=== PATIENT | female | born 1995 | race African-American/Black ===

== ENCOUNTER 2018-02-19 19:53 | Inpatient (IN) | payer BC, MEDICAID ==
[2018-02-19] MEDS ORDERED: MYLICON PO PRN (21:23)
[2018-02-19] MEDS ORDERED: COLACE PO PRN (21:23)
[2018-02-19] MEDS ORDERED: TYLENOL PO PRN (21:23)
[2018-02-19] MEDS ORDERED: AMBIEN PO PRN (21:23)
[2018-02-19] MEDS ORDERED: BENADRYL PO PRN (21:23)
--- NOTE | 2018-02-19 21:31 | History and Physical Report ---
History of Present Illness Date of examination: 02/19/18 Date of admission: 02/19/18 21:22 Chief complaint: I can't keep anything down History of present illness: Patient is a 22 year old who presents for inpatient management for hyperemesis. Past History - Obstetrical History : 1 Medications and Allergies Allergies Allergy/AdvReac Type Severity Reaction Status Date / Time Latex, Natural Rubber Allergy Intermediate Rash Verified 06/18/14 15:28 Home Medications Medication Instructions Recorded Confirmed Last Taken Type Vit No.126/Iron/Folic 1 each PO QDAY 06/26/14 06/26/14 06/25/14 08:00 History [Classic Tablet] one Docusate Sodium [Colace] 100 mg PO BID PRN #60 capsule 06/28/14 Unknown Rx Ferrous Sulfate [Feosol 325 MG tab] 325 mg PO BID #60 tablet 06/28/14 Unknown Rx Ibuprofen [Motrin] 800 mg PO Q8H PRN #60 tablet 06/28/14 Unknown Rx oxyCODONE /ACETAMINOPHEN [Percocet 2 tab PO Q6H PRN #50 tablet 06/28/14 Unknown Rx 5/325 mg] Active Meds: Active Medications Acetaminophen (Tylenol) 650 mg PO Q4H PRN PRN Reason: Pain MILD(1-3)/Fever >100.5/HSIEH Results All other labs normal.
[2018-02-19 23:56] LABS: Alanine Aminotransferase 12 units/L (7-56); Albumin 4.5 g/dL (3.9-5); BUN/Creatinine Ratio 15; Blood Urea Nitrogen 6 mg/dL (7-17); Calcium 9.2 mg/dL (8.4-10.2); Hemolysis Index 3
[2018-02-20] MEDS: REGLAN IV PRN ×2 (02:00→15:38)
[2018-02-20] MEDS: D5LR W/KCL 20 MEQ 20 MEQ/1,000 ML BAG IV SCH ×2 (02:15→12:27)
[2018-02-20] MEDS ORDERED: PRENATAL VITAMIN PO SCH (10:00)
[2018-02-20] MEDS: ZOFRAN IV PRN ×3 (10:43→21:13)
[2018-02-20] MEDS: D5LR 1,000 ML IV SCH (18:48)
[2018-02-21] MEDS: REGLAN IV PRN (01:49)
[2018-02-21] MEDS: D5LR 1,000 ML IV SCH (01:50)
[2018-02-21 13:31] VITALS: BP 98/59
--- NOTE | 2018-02-21 17:30 | Progress Note ---
Assessment and Plan HD for admission for hyperemesis. Much improved. Patient to be discharged on today Subjective - Subjective Date of service: 02/21/18 Interval history: Patient is a 22 year old who presents for inpatient management for hyperemesis. Patient has not had any vomiting today after iv hydrtion and potassium replacement Objective - Vital Signs Vital Signs: Vital Signs - 12hr 02/21/18 02/21/18 09:00 13:00 Temperature 98.6 F 98.6 F Pulse Rate 75 76 Respiratory 18 18 Rate Blood Pressure 106/54 98/59 [Left] - Exam Breasts: deferred Cardiovascular: Regular rate, Normal S1, Normal S2 Lungs: Clear to auscultation, Normal air movement - Labs Labs: Abnormal Labs 02/19/18 02/21/18 23:35 06:19 Sodium 136 L Potassium 2.9 L* 3.4 L Chloride 95.5 L BUN 6 L Creatinine 0.4 L Total Bilirubin 1.50 H Total Protein 8.5 H Laboratory Results - last 24 hr 02/21/18 06:19 Potassium 3.4 L
--- NOTE | 2018-02-21 17:32 | Discharge Summary ---
Providers - Providers Date of Admission: 02/19/18 21:22 Date of discharge: 02/21/18 Attending physician: TEOFILO URBANO 02/19/18 Consult to Case Management [CONS] Routine Services Needed at Discharge: Other Notified:: loy duane Phone number called:: [phone] Was contact made?: Yes If yes, spoke with:: Britany Time called:: 11:10 Comment:: will come to see patient 02/19/18 21:23 Consult to Dietitian/Nutrition [CONS] Routine Physician Instructions: Reason For Exam: Reason for Consult: Poor oral intake Primary care physician: TEOFILO URBANO Hospitalization Reason for admission: other (hyperemesis) Discharge diagnosis: other Hospital course: improved Condition at discharge: Good Disposition: DC-01 TO HOME OR SELFCARE Plan - Provider Discharge Summary Activity: routine Diet: routine Instructions: routine Additional instructions: [] Smoking cessation referral if applicable(refer to patient education folder for contact #) [] Refer to [facility]'s [facility] Booklet Call your doctor immediately for: * Fever > 100.5 * Heavy vaginal bleeding ( >1 pad per hour) * Severe persistent headache * Shortness of breath * Reddened, hot, painful area to leg or breast * Drainage or odor from incision. * Keep incision clean and dry at all times and follow doctor's instructions regarding bathing/showering - Follow up plan Follow up: TEOFILO URBANO MD [Primary Care Provider] - (Call Dr. Urbano office for follow up appointment) Forms: [facility] Discharge Summary
== END 2018-02-21 15:30 | disposition home or self-care (01) | DRG 781 ==
LOC: 3A 19:53 → UNDOADMIN 19:53 → OB 21:22
PROVIDERS: ADMIT Obstetrics & Gynecology; ATTEND Obstetrics & Gynecology
DX: O21.0 Mild hyperemesis gravidarum (principal); Z3A.09 9 weeks gestation of pregnancy
CPT/HCPCS: 36415; 80053; 84132; J2405; J2765; J7120; J7121

== ENCOUNTER 2018-09-14 06:02 | Inpatient (IN) | payer BC, MEDICAID ==
[~2018-09-14 06:02] MED LIST: BICITRA PO ONE; PEPCID IV ONE; REGLAN IV ONE
[2018-09-14] MEDS: LACTATED RINGERS 1,000 ML IV SCH ×2 (06:20→07:25)
[2018-09-14 06:41] LABS: Basophils # (Auto) 0.1 K/mm3 (0.0-0.1); Basophils % (Auto) 0.6 % (0.0-1.8); Eosinophils % (Auto) 0.3 % (0.0-4.3); Hemoglobin 10.6 gm/dl (10.1-14.3); Lymphocytes # (Auto) 2.7 K/mm3 (1.2-5.4); Lymphocytes % (Auto) 21.3 % (13.4-35.0); Mean Corpuscular HGB Conc 35 % (30-34); Mean Corpuscular Volume 89 fl (79-97); Monocytes # (Auto) 0.7 K/mm3 (0.0-0.8); Monocytes % (Auto) 5.6 % (0.0-7.3); Platelet Count 315 K/mm3 (140-440); Red Blood Count 3.38 M/mm3 (3.65-5.03); Red Cell Distribution Width 16.8 % (13.2-15.2)
[2018-09-14] MEDS ORDERED: ANCEF/STERILE WATER 2 GM/20 ML 2 GM/20 ML SYRINGE IV NR (07:00)
--- NOTE | 2018-09-14 08:00 | History and Physical Report ---
History of Present Illness Date of examination: 09/14/18 Date of admission: 09/14/18 06:02 Chief complaint: I'm here for my History of present illness: Patient is here for an elective repeat at 39 weeks gestation. 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 Patient has already met with NICU team and has established a plan of care. All labs are negative. GBS is negative Past History Past Medical History: no pertinent history Past Surgical History: section (2016 for placenta previa ) Family/Genetic History: none Social history: single - Obstetrical History Expected Date of Delivery: 09/20/18 Actual Gestation: 39 Week(s) 1 Day(s) : 2 Para: 1 Hx # Term Pregnancies: 0 Number of Pregnancies: 1 Medications and Allergies Allergies Allergy/AdvReac Type Severity Reaction Status Date / Time Latex, Natural Rubber Allergy Intermediate Rash Verified 06/18/14 15:28 Home Medications Medication Instructions Recorded Confirmed Last Taken Type Vit No.126/Iron/Folic 1 each PO QDAY 06/26/14 09/14/18 09/12/18 History [Classic Tablet] Active Meds: Active Medications Lactated Ringer's (Lactated Ringers) 1,000 mls @ 2,250 mls/hr IV PREOP JO ANN Stop: 09/15/18 07:27 Last Admin: 09/14/18 07:25 Dose: 2,250 mls/hr Documented by: Oxytocin/Sodium Chloride (Pitocin/Ns 20 Unit/1000ml Drip) 20 units in 1,000 mls @ 0 mls/hr IV TITR JO ANN Review of Systems All systems: negative - Vital Signs Vital signs: Vital Signs Pulse BP 105 H 107/55 09/14/18 06:47 09/14/18 06:47 Temp Pulse Resp BP Pulse Ox 98.2 F 105 H 20 107/55 99 09/14/18 06:49 09/14/18 06:47 09/14/18 06:49 09/14/18 06:47 09/14/18 06:49 - Physical Exam Breasts: Positive: deferred Cardiovascular: Regular rate, Normal S1, Normal S2 Lungs: Positive: Clear to auscultation, Normal air movement Abdomen: Positive: normal appearance, soft, normal bowel sounds Genitourinary (Female): Positive: normal external genitalia, normal perenium Vulva: both: normal Vagina: Positive: normal moisture Uterus: Positive: enlarged (small for dates) Anus/Rectum: Positive: normal perianal skin Results Result Diagrams: 09/14/18 06:20 Abnormal lab results 09/14/18 Range/Units 06:20 WBC 12.5 H (4.5-11.0) K/mm3 RBC 3.38 L (3.65-5.03) M/mm3 Hct 30.0 L (30.3-42.9) % MCHC 35 H (30-34) % RDW 16.8 H (13.2-15.2) % Seg Neutrophils % 72.2 H (40.0-70.0) % Seg Neutrophils # 9.0 H (1.8-7.7) K/mm3 All other labs normal. Assessment and Plan IUP at 39 weeks with skeletal dysplasia here for elective repeat . Consents signed. Will proceed with surgery. NICU aware.
[2018-09-14] MEDS ORDERED: ZOFRAN ONE (08:14)
[2018-09-14] MEDS ORDERED: SUBLIMAZE ONE (08:14)
[2018-09-14] MEDS ORDERED: ASTRAMORPH PF 10MG/10ML ONE (08:14)
--- NOTE | 2018-09-14 08:27 | Anesthesia Consultation ---
Anesthesia Consult and Med Hx Date of service: 09/14/18 - Airway Anesthetic Teeth Evaluation: Good ROM Head & Neck: Adequate Mental/Hyoid Distance: Adequate Mallampati Class: Class I Intubation Access Assessment: Good - Pulmonary Exam CTA: Yes - Cardiac Exam Cardiac Exam: RRR - Pre-Operative Health Status ASA Pre-Surgery Classification: ASA2 Proposed Anesthetic Plan: Spinal - Pulmonary Hx Smoking: No Hx Asthma: No Hx Respiratory Symptoms: No COPD: No Hx Pneumonia: No - Cardiovascular System Hx Hypertension: No Hx Coronary Artery Disease: No Hx Heart Attack/AMI: No Hx Angina: No Hx Cardia Arrhythmia: No Hx Pacemaker: No Hx Internal Defibrillator: No - Central Nervous System Hx Neuromuscular Disorder: No Hx Seizures: No CVA: No Hx Psychiatric Problems: No - Endocrine Hx Renal Disease: No Hx End Stage Renal Disease: No Hx Cirrhosis: No Hx Liver Disease: No Hx Insulin Dependent Diabetes: No Hx Non-Insulin Dependent Diabetes: No Hx Thyroid Disease: No Hx Hypothyroidism: No Hx Hyperthyroidism: No - Hematic Hx Anemia: No Hx Sickle Cell Disease: No - Other Systems Hx Alcohol Use: No Hx Substance Use: No Hx Cancer: No Hx Obesity: No
[2018-09-14] MEDS ORDERED: ANCEF/STERILE WATER 2 GM/20 ML IV ONE (08:33)
[2018-09-14] MEDS: PITOCin/NS 20 UNIT/1000ML DRIP 20 UNITS/1,000 ML BAG IV SCH ×2 (09:27→10:59)
[2018-09-14] MEDS ORDERED: DEMEROL IV PRN (10:16)
[2018-09-14] MEDS ORDERED: PHENERGAN PR PRN (10:30)
[2018-09-14] MEDS ORDERED: SODIUM CHLORIDE FLUSH SYRINGE 10 ML IV PRN (10:30)
[2018-09-14] MEDS ORDERED: PHENERGAN PO PRN (10:30)
[2018-09-14] MEDS ORDERED: NARCAN 0.4 MG/1 ML IV PRN ×2 (10:30→12:17)
[2018-09-14] MEDS ORDERED: fentaNYL-BUPIV 2 MCG/ML-0.125% 200 MCG/100 ML BAG EPIDURAL SCH (10:30)
[2018-09-14] MEDS ORDERED: DILAUDID IV PRN (10:30)
[2018-09-14] MEDS ORDERED: ZOFRAN IV PRN ×2 (10:30→12:17)
[2018-09-14] MEDS ORDERED: BENADRYL IV ONE ×2 (11:00→11:30)
--- NOTE | 2018-09-14 11:05 | Procedure Note ---
OB Delivery Note - Delivery Date of Delivery: 09/14/18 Surgeon: TEOFILO URBANO Estimated blood loss: other (600) - Section Preop diagnosis: repeat , other (skeletal dysplasia) Postop diagnosis: same section procedure: repeat low transverse Disposition: PACU Complications: none Narrative: see op report - A at 1 minute: 8 at 5 minutes: 9 Infant Gender: Female (2880g, 4 '9")
--- NOTE | 2018-09-14 11:10 | Operative Report ---
Operative Report Operative Report: The operative report for patient Sivan Bhatt Date of service: 09/14/2018 Preoperative diagnosis: Intrauterine at 39-4/7 weeks 2. Previous x 1 3. Skeletal dysplasia of the fetus 4. Severe IUGR Postoperative diagnosis: Same Procedure: Repeat low transverse section Surgeon: Dr. Ryann Sargent EBL: 600 mL Urine output: 75 mL IV fluids: 1000 mL Findings: Viable female in the vertex occiput anterior position. Weight 4 lbs. 9 oz. 3576 g Apgars 8 and 9]. Otherwise normal pelvic anatomy Specimens: Placenta Complications: None Procedure: The patient was admitted to the OR with IV running and in place. She was properly identified as herself. She was given spinal anesthesia in the a while without difficulty. She was placed in the dorsal supine position with a leftward tilt. A Elizabeth catheter was inserted. She was then prepped and draped in the normal sterile fashion. An Allis test was used to confirm adequate anesthesia. Once confirmed, the incision was made with the scalpel and carried to the underlying fascia using the scalpel and the Bovie. The fascia was incised in the midline and incision was extended bilaterally using the curved Beard scissors. The fascia was then dissected from the underlying rectus muscles in a series of sharp and blunt dissection using the Beard scissors. Muscles were in the in the midline sharply using Metzenbaum scissors and the peritoneum was entered into bluntly using the surgeon's fingers. A bladder blade was then placed into the incision to protect the bladder. Following this the bladder flap was created. Hysterotomy incision was then made in the scalpel. Upon uterine entry, the amniotic sac was ruptured for clear fluid. The was then delivered in the occiput anterior position. Her mouth and nose were suctioned on the field. The cord was clamped and cut and she was handed to the waiting NICU personnel. 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 The head of the infant was markedly softer than normal. The placenta was delivered manually and taken off the field. The uterus was then exteriorized and cleared of all clots and debris. The hysterotomy incision was then closed in a running locked fashion using 0 Vicryl. The abdomen was then copiously irrigated with warm normal saline. Following this the uterus was replaced into the abdominal cavity. At this point the muscles were reapproximated in the midline using individual sutures of 0 Vicryl. Following this the fascia was closed in a running fashion using 0 Vicryl. Tissue was then copiously irrigated. A retention suture was placed in the subcuticular fat. Skin was closed in a running fashion using 3-0 Monocryl. The sponge lap needle and instrument counts were correct 2. The patient tolerated the procedure well. She was taken to recovery in stable condition.
[2018-09-14] MEDS ORDERED: TYLENOL PO PRN (12:17)
[2018-09-14] MEDS ORDERED: MORPHINE IV PRN (12:17)
[2018-09-14] MEDS ORDERED: MYLICON PO PRN (12:17)
[2018-09-14] MEDS ORDERED: MILK OF MAGNESIA PO PRN (12:17)
[2018-09-14] MEDS ORDERED: SODIUM CHLORIDE FLUSH SYRINGE 10 ML IV NR (12:17)
[2018-09-14] MEDS ORDERED: D5LR 1,000 ML IV SCH (12:17)
[2018-09-14] MEDS ORDERED: TUCKS PAD TP PRN (12:17)
[2018-09-14] MEDS ORDERED: PITOCin/NS 20 UNIT/1000ML DRIP 20 UNITS/1,000 ML BAG IV SCH (12:17)
[2018-09-14] MEDS ORDERED: LANSINOH TP PRN (12:17)
[2018-09-14] MEDS: IBUPROFEN PO PRN (16:22)
[2018-09-14] MEDS: PERCOCET 5/325 PO PRN (16:22)
[2018-09-14] MEDS: TORADOL IV PRN (16:51)
[2018-09-14] MEDS: BENADRYL IV PRN (21:40)
[2018-09-14 23:10] LABS: Hematocrit 26.2 % (30.3-42.9); Hemoglobin 8.8 gm/dl (10.1-14.3)
[2018-09-15] MEDS: BENADRYL IV PRN (03:56)
[2018-09-15] MEDS: TORADOL IV PRN (03:56)
[2018-09-15] MEDS: IBUPROFEN PO PRN ×2 (10:42→17:57)
[2018-09-15] MEDS: PERCOCET 5/325 PO PRN ×3 (10:42→22:08)
[2018-09-16] MEDS: PERCOCET 5/325 PO PRN ×4 (06:27→21:34)
--- NOTE | 2018-09-16 10:25 | Progress Note ---
Assessment and Plan POD 2 s/p Rltcs. Patient doing well physically. Patient continues to be quite emotional regarding status of baby. Plan for discharge on tomorrow. Subjective - Subjective Date of service: 09/16/18 Interval history: Patient is here for an elective repeat at 39 weeks gestation. 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 Patient has already met with NICU team and has established a plan of care. All labs are negative. GBS is negative Patient reports: appetite normal, voiding normally, pain well controlled, flatus, ambulating normally [place]: in NICU Objective - Vital Signs Latest vital signs: Vital Signs Temp Pulse Resp BP BP Pulse Ox 09/16/18 08:10 98.6 F 76 16 117/60 09/16/18 06:27 22 09/16/18 04:00 98.6 F 77 18 114/67 09/15/18 23:30 98.7 F 77 18 108/64 09/15/18 23:08 20 09/15/18 22:08 18 09/15/18 19:30 98.6 F 81 18 104/57 09/15/18 18:58 18 09/15/18 18:57 16 09/15/18 17:58 20 09/15/18 17:57 20 09/15/18 15:58 98.2 F 83 20 102/47 97 09/15/18 12:02 98.1 F 119 H 16 112/73 95 09/15/18 10:42 20 Intake and Output 09/15/18 09/16/18 09/16/18 22:59 06:59 14:59 Intake Total 540 250 Balance 540 250 Intake: Oral 240 250 Intake, Free Water 300 Other: Total, Intake Amount 250 # Voids Indwelling Catheter 1 - Exam Breasts: Present: deferred Cardiovascular: Present: Regular rate, Normal S1, Normal S2 Lungs: Present: Clear to auscultation, Normal air movement Abdomen: Present: normal appearance, soft Extremities: Present: normal Incision: Present: normal, dry, intact
--- NOTE | 2018-09-16 10:27 | Discharge Summary ---
Providers - Providers Date of Admission: 09/14/18 06:02 Date of discharge: 09/16/18 Attending physician: TEOFILO URBANO Primary care physician: TEOFILO URBANO Hospitalization Reason for admission: section Delivery: Procedure: repeat low transverse Procedure details: see op report Episiotomy: none Laceration: none Incision: normal, dry, intact Other procedures: none complications: none Discharge diagnosis: IUP at term delivered [place] baby: female Hospital course: good Condition at discharge: Good Disposition: DC-01 TO HOME OR SELFCARE Plan - Discharge Medications Prescriptions: Docusate Sodium [Colace] 100 mg PO BID PRN #60 capsule PRN Reason: Constipation Ibuprofen [Motrin] 800 mg PO Q8HR PRN #40 tablet PRN Reason: Pain, Mild (1-3) Oxycodone HCl/Acetaminophen [Percocet 7.5/325 mg] 1 each PO Q6HR PRN #40 tablet PRN Reason: Pain - Provider Discharge Summary Activity: routine, no sex for 6 weeks, no heavy lifting 4 weeks, no strenuous exercise Diet: routine Instructions: routine Additional instructions: [] Smoking cessation referral if applicable(refer to patient education folder for contact #) [] Refer to [facility] Booklet Call your doctor immediately for: * Fever > 100.5 * Heavy vaginal bleeding ( >1 pad per hour) * Severe persistent headache * Shortness of breath * Reddened, hot, painful area to leg or breast * Drainage or odor from incision. * Keep incision clean and dry at all times and follow doctor's instructions regarding bathing/showering - Follow up plan Follow up: TEOFILO URBANO MD [Primary Care Provider] - 14 Days
[2018-09-16] MEDS: PRENATAL VITAMIN PO SCH (11:06)
[2018-09-16] MEDS: IBUPROFEN PO PRN ×2 (11:06→16:23)
[2018-09-16] MEDS: FEOSOL PO SCH (11:06)
[2018-09-17] MEDS: IBUPROFEN PO PRN ×3 (02:34→16:20)
[2018-09-17] MEDS: PERCOCET 5/325 PO PRN ×3 (05:22→16:00)
[2018-09-17] MEDS: PRENATAL VITAMIN PO SCH (10:38)
[2018-09-17] MEDS: FEOSOL PO SCH (10:38)
[2018-09-17 17:12] VITALS: BP 107/62
== END 2018-09-17 21:15 | disposition home or self-care (01) | DRG 765 ==
LOC: APU 06:02 → OB 12:16
PROVIDERS: ADMIT Obstetrics & Gynecology; ATTEND Obstetrics & Gynecology
PROC: 10D00Z1 Extraction of Products of Conception, Low, Open Approach (ICD-10-PCS; principal; 2018-09-14)
DX: O34.211 Maternal care for low transverse scar from previous cesarean delivery (principal); O36.5930 Maternal care for other known or suspected poor fetal growth, third trimester, not applicable or unspecified; Z37.0 Single live birth; Z3A.39 39 weeks gestation of pregnancy; Z91.040 Latex allergy status; Z91.048 Other nonmedicinal substance allergy status; O35.8XX0 Maternal care for other (suspected) fetal abnormality and damage, not applicable or unspecified
CPT/HCPCS: 36415; 85014; 85018; 85025; 86850; 86900; 86901; 88307; G0378; J0690; J1170; J1200; J1885; J2175; J2274; J2405; J2590; J2765; J3010; J7120; J7121

== ENCOUNTER 2019-08-17 05:18 | Inpatient (IN) | payer MEDICAID ==
[2019-08-17] MEDS ORDERED: FAMOTIDINE 20 MG/2 ML INJ IV ONE ×2 (05:50→08:25)
[2019-08-17] MEDS ORDERED: METOCLOPRAMIDE 10 MG/2 ML INJ IV ONE (05:50)
[2019-08-17] MEDS ORDERED: BICITRA ORAL LIQD 30ML PO ONE (05:50)
[2019-08-17] MEDS ORDERED: ceFAZolin/Water 2 GM/20 ML 2 GM/20 ML SYRINGE IV NR (06:00)
[2019-08-17] MEDS ORDERED: OXYTOCIN 20 UNIT/1000ML DRIP 20 UNITS/1,000 ML BAG IV SCH ×2 (06:00→12:52)
[2019-08-17] MEDS: LACTATED RINGERS 1,000 ML IV SCH ×2 (06:10→07:29)
[2019-08-17 06:30] LABS: Basophils # (Auto) 0.1 K/mm3 (0.0-0.1); Basophils % (Auto) 0.6 % (0.0-1.8); Eosinophils # (Auto) 0.1 K/mm3 (0.0-0.4); Eosinophils % (Auto) 0.6 % (0.0-4.3); Hematocrit 31.4 % (30.3-42.9); Hemoglobin 10.8 gm/dl (10.1-14.3); Lymphocytes # (Auto) 2.3 K/mm3 (1.2-5.4); Lymphocytes % (Auto) 17.7 % (13.4-35.0); Mean Corpuscular HGB Conc 34 % (30-34); Mean Corpuscular Volume 86 fl (79-97); Monocytes # (Auto) 0.8 K/mm3 (0.0-0.8); Monocytes % (Auto) 5.8 % (0.0-7.3); Platelet Count 328 K/mm3 (140-440); Red Blood Count 3.67 M/mm3 (3.65-5.03); Red Cell Distribution Width 17.1 % (13.2-15.2)
[2019-08-17] MEDS ORDERED: ceFAZolin/Water 2 GM/20 ML 2 GM/20 ML SYRINGE IV ONE (08:25)
[2019-08-17] MEDS ORDERED: METOCLOPRAMIDE 10 MG/2 ML INJ ONE (08:25)
[2019-08-17] MEDS ORDERED: BICITRA ORAL LIQD 30ML ONE (08:25)
[2019-08-17] MEDS ORDERED: DEXMEDETOMIDINE 200 MCG/2 ML VIAL IV ONE (09:06)
[2019-08-17] MEDS ORDERED: WATER FOR IRRIG STERILE 1,500 ML BOTTLE IR ONE (09:07)
[2019-08-17] MEDS ORDERED: HYDROmorphone 1 MG/1 ML INJ IV PRN ×2 (09:07)
[2019-08-17] MEDS ORDERED: SODIUM CHLORIDE 0.9% IRR 1,500 ML BOTTLE IR ONE (09:07)
[2019-08-17] MEDS ORDERED: ONDANSETRON 4 MG/2 ML INJ IV PRN ×2 (09:07→12:52)
--- NOTE | 2019-08-17 09:08 | Anesthesia Consultation ---
Anesthesia Consult and Med Hx Date of service: 08/17/19 - Airway Anesthetic Teeth Evaluation: Good ROM Head & Neck: Adequate Mental/Hyoid Distance: Adequate Mallampati Class: Class II Intubation Access Assessment: Probably Good - Pulmonary Exam CTA: Yes - Cardiac Exam Cardiac Exam: RRR - Pre-Operative Health Status ASA Pre-Surgery Classification: ASA2 Proposed Anesthetic Plan: Epidural - Pulmonary Hx Smoking: No Hx Asthma: No Hx Respiratory Symptoms: No SOB: No COPD: No Home Oxygen Therapy: No Hx Pneumonia: No Hx Sleep Apnea: No - Cardiovascular System Hx Hypertension: No Hx Coronary Artery Disease: No Hx Heart Attack/AMI: No Hx Angina: No Hx Percutaneous Transluminal Coronary Angioplasty (PTCA): No Hx Cardia Arrhythmia: No Hx Pacemaker: No Hx Internal Defibrillator: No Hx Valvular Heart Disease: No Hx Heart Murmur: No Hx Peripheral Vascular Disease: No - Central Nervous System Hx Neuromuscular Disorder: No Hx Seizures: No CVA: No Hx Psychiatric Problems: Yes ( depression) - Endocrine Hx Renal Disease: No Hx End Stage Renal Disease: No Hx Cirrhosis: No Hx Liver Disease: No Hx Insulin Dependent Diabetes: No Hx Non-Insulin Dependent Diabetes: No Hx Thyroid Disease: No Hx Hypothyroidism: No Hx Hyperthyroidism: No - Hematic Hx Anemia: Yes Hx Sickle Cell Disease: No - Other Systems Hx Alcohol Use: No Hx Substance Use: No Hx Cancer: No Hx Obesity: No
--- NOTE | 2019-08-17 09:09 | Anesthesia Day of Surgery ---
Anesthesia Day of Surgery - Day of Surgery Patient Examined: Yes Patient H&P Reviewed: Yes Patient is NPO: Yes Beta Blockers: No Cardiac Clearance: No Pulmonary Clearance: No Noble's Test: N/A
--- NOTE | 2019-08-17 09:13 | History and Physical Report ---
History of Present Illness Date of examination: 08/17/19 Date of admission: 08/17/19 05:18 Chief complaint: I'm here for my History of present illness: Patient is a 24 year old who presents to L&D for elective repeat at 39 weeks with an EDC of 08/24/2019. Pt has a history of previous complicated by placenta previa and delivery at 31 weeiks. Her second was delivered and had Type 2 OI. This has been complicated by diagnosis of Klinefelters syndrome. Her labs have been otherwise normal. Past History Past Medical History: no pertinent history Past Surgical History: section (x2) Family/Genetic History: none Social history: single - Obstetrical History Expected Date of Delivery: 08/23/19 Actual Gestation: 39 Week(s) 1 Day(s) : 3 Medications and Allergies Allergies Allergy/AdvReac Type Severity Reaction Status Date / Time Latex, Natural Rubber Allergy Intermediate Rash Verified 06/18/14 15:28 Home Medications Medication Instructions Recorded Confirmed Last Taken Type Vit No.126/Iron/Folic 1 each PO QDAY 06/26/14 09/14/18 09/12/18 History [Classic Tablet] one Docusate Sodium [Colace] 100 mg PO BID PRN #60 capsule 09/14/18 Unknown Rx Ibuprofen [Motrin] 800 mg PO Q8HR PRN #40 tablet 09/14/18 Unknown Rx Oxycodone HCl/Acetaminophen 1 each PO Q6HR PRN #40 tablet 09/14/18 Unknown Rx [Percocet 7.5/325 mg] Active Meds: Active Medications Hydromorphone HCl (Dilaudid) 0.5 mg IV Q5M PRN PRN Reason: BREAK Hydromorphone HCl (Dilaudid) 0.5 mg IV Q4H PRN PRN Reason: breakthrough pain > 7/10 Oxytocin/Sodium Chloride (Pitocin/Ns 20 Unit/1000ml Drip) 20 units in 1,000 mls @ 0 mls/hr IV TITR JO ANN Lactated Ringer's (Lactated Ringers) 1,000 mls @ 2,250 mls/hr IV PREOP JO ANN Stop: 08/18/19 06:27 Last Admin: 08/17/19 07:29 Dose: 2,250 mls/hr Documented by: Ondansetron HCl (Zofran) 4 mg IV Q8H PRN PRN Reason: Nausea And Vomiting Sodium Chloride (Sodium Chloride Flush Syringe 10 Ml) 10 ml IV PRN NR Review of Systems All systems: negative Genitourinary: leakage of fluid, contractions - Vital Signs Vital signs: Vital Signs Temp Pulse Resp BP 98.1 F 113 H 18 114/68 08/17/19 06:34 08/17/19 06:34 08/17/19 06:34 08/17/19 06:34 Temp Pulse Resp BP Pulse Ox 98.1 F 113 H 18 114/68 08/17/19 06:34 08/17/19 06:34 08/17/19 06:34 08/17/19 06:34 - Physical Exam Breasts: Cardiovascular: Regular rate, Normal S1, Normal S2 Lungs: Positive: Clear to auscultation, Normal air movement Abdomen: Positive: normal appearance, soft, normal bowel sounds. Negative: distention, tenderness Vulva: both: normal Vagina: Positive: normal moisture. Negative: discharge Cervix: Negative: lesion, discharge Uterus: Positive: normal size, normal contour Adnexa: both: normal Anus/Rectum: Positive: normal perianal skin, heme negative. Negative: rectal mass, hemorrhoids Extremities: Deep Tendon Reflex Grade: Normal +2 Results Result Diagrams: 08/17/19 06:10 Abnormal lab results 08/17/19 Range/Units 06:10 WBC 13.1 H (4.5-11.0) K/mm3 RDW 17.1 H (13.2-15.2) % Seg Neutrophils % 75.3 H (40.0-70.0) % Seg Neutrophils # 9.9 H (1.8-7.7) K/mm3 All other labs normal. Assessment and Plan IUP at 39.1 weeks for elective repeat . Admit for surgery. consents signed.
[2019-08-17] MEDS ORDERED: ONDANSETRON 4 MG/2 ML INJ ONE (09:57)
[2019-08-17] MEDS ORDERED: KETOROLAC 30 MG/1 ML INJ ONE (09:57)
--- NOTE | 2019-08-17 10:38 | Post Anesthesia Evaluation ---
- Post Anesthesia Evaluation Patient Participated: Yes Airway Patent: Yes Stable Respiratory Function: Yes Nausea/Vomiting: No Temp > 96.8F: Yes Pain Manageable: Yes Adequeate Hydration: Yes Anesthesia Complications: No Block Receding Appropriately: Yes Patient on Ventilator: No
--- NOTE | 2019-08-17 10:42 | Procedure Note ---
OB Delivery Note - Delivery Date of Delivery: 08/17/19 Surgeon: TEOFILO URBANO Estimated blood loss: other (700) - Section Preop diagnosis: repeat , other malpresentation section procedure: repeat low transverse Disposition: PACU Complications: none Narrative: see op report - Infant A at 1 minute: 8 at 5 minutes: 9 Infant Gender: Male (5 pounds 10 ounces)
--- NOTE | 2019-08-17 10:49 | Operative Report ---
Operative Report Operative Report: he operative report for patient Sivan Bhatt Date of service: 08/17/19 Preoperative diagnosis: Intrauterine at 39 weeks 2. Previous x2 Postoperative diagnosis: Same Procedure: Repeat low transverse section Surgeon: Dr. Ryann Sargent EBL: 700 Urine output: 100 mL IV fluids: 1100 mL Findings: Viable male in the vertex position. Weight 5 lbs. 10 oz. 2566 g Apgars 8 and 9]. Otherwise normal pelvic anatomy Specimens: None Complications: None Procedure: The patient was admitted to the OR with IV running and in place. She was properly identified as herself. She was given spinal anesthesia in the OR without difficulty. She was placed in the dorsal supine position with a leftward tilt. A Elizabeth catheter was inserted. She was then prepped and draped in the normal sterile fashion. An Allis test was used to confirm adequate anes thesia. Once confirmed, the incision was made with the scalpel and carried to the underlying fascia using the scalpel and the Bovie. The fascia was incised in the midline and incision was extended bilaterally using the curved Beard scissors. The fascia was then dissected from the underlying rectus muscles in a series of sharp and blunt dissection using the Beard scissors. Muscles were in the in the midline sharply using Metzenbaum scissors and the peritoneum was entered into bluntly using the surgeon's fingers. A bladder blade was then placed into the incision to protect the bladder. Following this the bladder flap was created. Hysterotomy incision was then made in the scalpel. Upon uterine entry, the amniotic sac was ruptured for clear fluid. The infant was then delivered in the vetex presentation. His mouth and nose were suctioned on the field. The cord was clamped and cut and he was handed to the waiting NICU personnel. The uterus was then exteriorized and cleared of all clots and debris. The hysterotomy incision was then closed in a running locked fashion using 0 Vicryl in 2 layers. The abdomen was then copiously irrigated with warm normal saline. Following this the uterus was replaced into the abdominal cavity. At this point the muscles were reapproximated in the midline using individual sutures of 0 Vicryl. Following this the fascia was closed in a running fashion using 0 Vicryl. Tissue was then copiously irrigated. Skin was closed in a running fashion using 3-0 Monocryl. A small keloid was excised from the superior skin edge prior to closure of the skin. The sponge lap needle and instrument counts were correct 2. The patient tolerated the procedure well. She was taken to recovery in stable condition.
[2019-08-17] MEDS ORDERED: LANOLIN/ZINC/DIMETHICONE (LANSINOH) 7 GM TP PRN (12:52)
[2019-08-17] MEDS ORDERED: SENNOSIDES 8.6 MG TAB PO PRN (12:52)
[2019-08-17] MEDS ORDERED: WITCH HAZEL/ GLYCERIN PAD TP PRN (12:52)
[2019-08-17] MEDS ORDERED: NALOXONE 0.4 MG/1 ML INJ IV PRN (12:52)
[2019-08-17] MEDS ORDERED: D5W/LACTATED RINGERS 1,000 ML IV SCH (12:52)
[2019-08-17] MEDS ORDERED: MORPHINE 2 MG/1 ML INJ IV PRN (12:52)
[2019-08-17] MEDS ORDERED: MAGNESIUM HYDROXIDE (MOM) ORAL LIQD UDC PO PRN (12:52)
[2019-08-17] MEDS: oxyCODONE /ACETAMINOPHEN 5-325MG TAB PO PRN ×2 (13:32→16:47)
[2019-08-17] MEDS: IBUPROFEN 800 MG TAB PO PRN (21:20)
[2019-08-17 23:53] LABS: Hematocrit 27.4 % (30.3-42.9); Hemoglobin 9.5 gm/dl (10.1-14.3)
[2019-08-18] MEDS: oxyCODONE /ACETAMINOPHEN 5-325MG TAB PO PRN ×3 (00:32→18:31)
[2019-08-18] MEDS: IBUPROFEN 800 MG TAB PO PRN ×3 (05:25→20:02)
[2019-08-18] MEDS: PRENATAL VIT27-FE FUMARATE-FOLIC ACID VIT TAB PO SCH (10:22)
[2019-08-19] MEDS: oxyCODONE /ACETAMINOPHEN 5-325MG TAB PO PRN ×3 (01:35→19:51)
[2019-08-19] MEDS: IBUPROFEN 800 MG TAB PO PRN ×2 (06:47→15:14)
[2019-08-19] MEDS: PRENATAL VIT27-FE FUMARATE-FOLIC ACID VIT TAB PO SCH (09:31)
--- NOTE | 2019-08-19 10:37 | Progress Note ---
Assessment and Plan POD2 s/p repeat c/s Vital signs stable Acute anemia- ferrous sulfate Routine pp care Breast feeding education D/c to home on POD3 Subjective - Subjective Date of service: 08/19/19 Principal diagnosis: s/p repeat c/s Patient reports: appetite normal, voiding normally, pain well controlled, flatus, ambulating normally [place]: doing well, bottle feeding (difficulty latching to breast) Objective - Vital Signs Latest vital signs: Vital Signs Temp Pulse Resp BP BP Pulse Ox 08/19/19 08:27 98.6 F 73 20 99/47 95 08/19/19 06:47 18 08/19/19 01:35 18 08/19/19 00:02 98.2 F 86 20 102/56 95 08/18/19 16:27 98.1 F 99 H 18 105/54 Intake and Output 08/18/19 08/19/19 08/19/19 23:59 07:59 15:59 Intake Total 480 240 Balance 480 240 Intake: Oral 480 240 Other: Total, Intake Amount 480 240 # Voids Void 1 1 - Exam Lungs: Present: Normal air movement Abdomen: Present: soft Uterus: Present: firm, fundal height below umbilicus. Absent: bogginess Extremities: Present: normal Incision: Present: dressed
[2019-08-20] MEDS: IBUPROFEN 800 MG TAB PO PRN (01:58)
[2019-08-20] MEDS: oxyCODONE /ACETAMINOPHEN 5-325MG TAB PO PRN ×2 (06:38→13:25)
--- NOTE | 2019-08-20 11:34 | Progress Note ---
Assessment and Plan POD3 s/p repeat c/s Asymptomatic hypotension- repeat H/H and increase PO fluids Acute anemia- ferrous sulfate Routine pp care Breast feeding education Subjective - Subjective Date of service: 08/20/19 Principal diagnosis: s/p repeat c/s Interval history: Pt is POD2 s/p repeat c/s with tubal Patient reports: appetite normal, voiding normally, pain well controlled, flatus, ambulating normally : doing well, nursing well, bottle feeding (both) Objective - Vital Signs Latest vital signs: Vital Signs Temp Pulse Resp BP BP Pulse Ox 08/20/19 10:32 94/46 08/20/19 07:40 98.5 F 86 20 88/32 96 08/20/19 00:08 98.8 F 82 20 99/46 95 08/19/19 16:19 98.6 F 77 20 95/47 94 Intake and Output 08/19/19 08/20/19 08/20/19 23:59 07:59 15:59 Intake Total 700 240 Balance 700 240 Intake: Oral 700 240 Other: Total, Intake Amount 350 240 # Voids Void 1 - Exam Lungs: Present: Normal air movement Abdomen: Present: soft Uterus: Present: firm, fundal height below umbilicus Extremities: Present: normal Incision: Present: normal, dry, intact
[2019-08-20 11:44] LABS: Hematocrit 28.8 % (30.3-42.9)
--- NOTE | 2019-08-20 12:35 | Discharge Summary ---
Providers - Providers Date of Admission: 08/17/19 05:18 Date of discharge: 08/20/19 Attending physician: TEOFILO URBANO Primary care physician: TEOFILO URBANO Hospitalization Reason for admission: section Delivery: Procedure: repeat low transverse Incision: normal, dry, intact Other procedures: none complications: other (Asymptomatic hypotension) Discharge diagnosis: IUP at term delivered Hospital course: Pt presented for scheduled repeat LTCS at 39 weeks EGA. course complicated by asymptomatic hypotension, resolved. Condition at discharge: Good Disposition: DC-01 TO HOME OR SELFCARE Plan - Provider Discharge Summary Activity: routine, no sex for 6 weeks, no heavy lifting 4 weeks, no strenuous exercise Diet: routine Instructions: routine Additional instructions: [] Smoking cessation referral if applicable(refer to patient education folder for contact #) [] Refer to [facility] Booklet Call your doctor immediately for: * Fever > 100.5 * Heavy vaginal bleeding ( >1 pad per hour) * Severe persistent headache * Shortness of breath * Reddened, hot, painful area to leg or breast * Drainage or odor from incision. * Keep incision clean and dry at all times and follow doctor's instructions regarding bathing/showering - Follow up plan Follow up: TEOFILO URBANO MD [Primary Care Provider] - 14 Days (Please call to schedule appointment.)
[2019-08-20] MEDS: PRENATAL VIT27-FE FUMARATE-FOLIC ACID VIT TAB PO SCH (13:25)
[2019-08-20 17:28] VITALS: BP 117/69
== END 2019-08-20 16:30 | disposition home or self-care (01) | DRG 765 ==
LOC: APU 05:18 → OB 12:18
PROVIDERS: ADMIT Obstetrics & Gynecology; ATTEND Obstetrics & Gynecology
PROC: 10D00Z1 Extraction of Products of Conception, Low, Open Approach (ICD-10-PCS; principal; 2019-08-17)
DX: O34.211 Maternal care for low transverse scar from previous cesarean delivery (principal); O99.43 Diseases of the circulatory system complicating the puerperium; Z3A.39 39 weeks gestation of pregnancy; Z37.0 Single live birth; Z91.040 Latex allergy status; Z91.048 Other nonmedicinal substance allergy status; O32.9XX0 Maternal care for malpresentation of fetus, unspecified, not applicable or unspecified; O90.81 Anemia of the puerperium; D64.9 Anemia, unspecified; I95.9 Hypotension, unspecified
CPT/HCPCS: 36415; 85014; 85018; 85025; 86850; 86900; 86901; G0378; J0690; J1885; J2405; J2590; J2765; J3490; J7120; J7121

== ENCOUNTER 2022-04-02 07:30 | Inpatient (IN) | payer MEDICAID ==
[2022-04-02 11:16] LABS: Hematocrit 28.6 % (30.3-42.9); Hemoglobin 9.5 gm/dl (10.1-14.3); Mean Corpuscular HGB Conc 33 % (30-34); Mean Corpuscular Volume 79 fl (79-97); Platelet Count 343 K/mm3 (140-440); Red Blood Count 3.62 M/mm3 (3.65-5.03); Red Cell Distribution Width 18.5 % (13.2-15.2)
[2022-04-02] MEDS ORDERED: LACTATED RINGERS 1,000 ML IV SCH ×2 (12:00→14:30)
[2022-04-02] MEDS ORDERED: BICITRA ORAL LIQD 30ML ONE (13:38)
[2022-04-02] MEDS ORDERED: FAMOTIDINE 20 MG/2 ML INJ IV ONE (13:38)
[2022-04-02] MEDS ORDERED: METOCLOPRAMIDE 10 MG/2 ML INJ ONE (13:38)
[2022-04-02] MEDS ORDERED: OXYTOCIN DRIP 30,000 MILLIUNITS/500 ML BAG IV ONE (13:38)
--- NOTE | 2022-04-02 14:08 | Anesthesia Day of Surgery ---
Anesthesia Day of Surgery - Day of Surgery Patient Examined: Yes Patient H&P Reviewed: Yes Patient is NPO: Yes
--- NOTE | 2022-04-02 14:09 | Anesthesia Consultation ---
Anesthesia Consult and Med Hx Date of service: 04/02/22 - Airway Anesthetic Teeth Evaluation: Poor ROM Head & Neck: Adequate Mental/Hyoid Distance: Adequate Mallampati Class: Class II Intubation Access Assessment: Probably Good - Pulmonary Exam CTA: Yes - Cardiac Exam Cardiac Exam: RRR - Pre-Operative Health Status ASA Pre-Surgery Classification: ASA3 Proposed Anesthetic Plan: Spinal - Pulmonary Hx Smoking: No Hx Asthma: No Hx Respiratory Symptoms: No SOB: No COPD: No Hx Pneumonia: No Hx Sleep Apnea: No - Cardiovascular System Hx Hypertension: No Hx Coronary Artery Disease: No Hx Heart Attack/AMI: No Hx Angina: No Hx Percutaneous Transluminal Coronary Angioplasty (PTCA): No Hx Cardia Arrhythmia: No Hx Pacemaker: No Hx Internal Defibrillator: No Hx Valvular Heart Disease: No Hx Heart Murmur: No Hx Peripheral Vascular Disease: No - Central Nervous System Hx Neuromuscular Disorder: No Hx Seizures: No CVA: No Hx Psychiatric Problems: No - Endocrine Hx Renal Disease: No Hx End Stage Renal Disease: No Hx Cirrhosis: No Hx Liver Disease: No Hx Insulin Dependent Diabetes: No Hx Non-Insulin Dependent Diabetes: Yes (GDM) Hx Thyroid Disease: No Hx Hypothyroidism: No Hx Hyperthyroidism: No - Hematic Hx Anemia: Yes Hx Sickle Cell Disease: No - Other Systems Hx Alcohol Use: No Hx Substance Use: No Hx Cancer: No Hx Obesity: No
[2022-04-02] MEDS ORDERED: BUPIVACAINE/PF (0.5%) 5 MG/1 ML 30 ML VIAL INFILTRATI ONE (14:21)
--- NOTE | 2022-04-02 14:22 | History and Physical Report ---
History of Present Illness Date of examination: 04/02/22 Date of admission: 04/02/22 09:36 Chief complaint: I'm here for my History of present illness: Pt is a 27 year old who presents for elective repeat at 38.5 weeks with gestational diabetes. Pt had presentation to care in the 2nd trimester and missed some visits in between. Pt was not diagnosed with GDm until 35 weeks gestation. Her sugars are poorly controlled. Past History Past Medical History: no pertinent history Past Surgical History: section (x3) Family/Genetic History: none, other (child born with Type 2 OI) Social history: - Obstetrical History Expected Date of Delivery: 04/11/22 Actual Gestation: 38 Week(s) 5 Day(s) : 5 Para: 3 Spontaneous Abortions: 1 Number of Living Children: 2 Medications and Allergies Allergies Allergy/AdvReac Type Severity Reaction Status Date / Time Latex, Natural Rubber Allergy Intermediate Rash Verified 06/18/14 15:28 Home Medications Medication Instructions Recorded Confirmed Last Taken Type Vit No.126/Iron/Folic 1 each PO QDAY 06/26/14 08/18/19 08/18/19 History [Classic Tablet] Docusate Sodium [Colace] 100 mg PO BID PRN #60 capsule 09/14/18 08/18/19 08/18/19 Rx Ibuprofen [Motrin] 800 mg PO Q8HR PRN #40 tablet 09/14/18 08/18/19 08/17/19 Rx Oxycodone HCl/Acetaminophen 1 each PO Q6HR PRN #40 tablet 09/14/18 08/18/19 08/17/19 Rx [Percocet 7.5/325 mg] Ferrous Sulfate [Ferrous Sulfate 324 mg PO BID #60 tablet. 08/20/19 Unknown Rx 324 MG] Ibuprofen [Motrin] 600 mg PO Q6H PRN #60 tablet 08/20/19 Unknown Rx oxyCODONE /ACETAMINOPHEN [Percocet 1 tab PO Q6HR PRN #25 tablet 08/20/19 Unknown Rx 5/325 mg] Active Meds: Active Medications Lactated Ringer's (Lactated Ringers) 1,000 mls @ 125 mls/hr IV DIRECT JO ANN Review of Systems All systems: negative Constitutional: weight gain, fatigue Genitourinary: pelvic pain, contractions - Vital Signs Vital signs: Vital Signs Pulse BP 115 H 107/70 04/02/22 10:01 04/02/22 10:01 Temp Pulse Resp BP Pulse Ox 115 H 107/70 04/02/22 10:01 04/02/22 10:01 - Physical Exam Breasts: Cardiovascular: Regular rate, Normal S1, Normal S2 Lungs: Positive: Clear to auscultation, Normal air movement Abdomen: Positive: normal appearance, soft, normal bowel sounds. Negative: distention, tenderness Genitourinary (Female): Positive: normal external genitalia, normal perenium Vulva: both: normal Vagina: Positive: normal moisture. Negative: discharge Cervix: Negative: lesion, discharge Uterus: Positive: normal size, normal contour Adnexa: both: normal Anus/Rectum: Positive: normal perianal skin, heme negative. Negative: rectal mass, hemorrhoids Extremities: Deep Tendon Reflex Grade: Normal +2 - Obstetrical FHR: auscultation normal Cervical Dilatation: 0 Cervical Effacement Percentage: 50 station: -2 Uterine Contraction Pattern: Absent Uterine Tone Measurement Phase: Resting Results Result Diagrams: 04/02/22 10:45 Abnormal lab results 04/02/22 Range/Units 10:45 RBC 3.62 L (3.65-5.03) M/mm3 Hgb 9.5 L (10.1-14.3) gm/dl Hct 28.6 L (30.3-42.9) % MCH 26 L (28-32) pg RDW 18.5 H (13.2-15.2) % All other labs normal. Assessment and Plan IUP at 38.5 here for elective repeat section. Pt has GDM with this . Will admit for surgery. Consents signed and placed on chart.
[2022-04-02] MEDS ORDERED: METOCLOPRAMIDE 10 MG/2 ML INJ IV ONE (14:27)
[2022-04-02] MEDS ORDERED: BICITRA ORAL LIQD 30ML PO SCH (14:27)
[2022-04-02] MEDS ORDERED: FAMOTIDINE 20 MG/2 ML INJ IV SCH (14:27)
[2022-04-02] MEDS ORDERED: ONDANSETRON 4 MG/2 ML INJ ONE (14:28)
[2022-04-02] MEDS ORDERED: OXYTOCIN DRIP 30 UNITS/500 ML BAG IV SCH ×2 (15:00→19:23)
[2022-04-02] MEDS ORDERED: PHENYLEPHRINE 10 MG/1 ML INJ SDV ONE (15:09)
[2022-04-02] MEDS ORDERED: LACTATED RINGERS 1,000 ML ONE (15:19)
[2022-04-02] MEDS ORDERED: WATER FOR IRRIG STERILE 1,500 ML BOTTLE IR ONE (15:21)
[2022-04-02] MEDS ORDERED: SODIUM CHLORIDE 0.9% IRR 1,500 ML BOTTLE IR ONE (15:21)
[2022-04-02] MEDS ORDERED: KETOROLAC 30 MG/1 ML INJ ONE (15:47)
[2022-04-02] MEDS ORDERED: SODIUM CHLORIDE 0.9% 100 ML ONE (15:50)
--- NOTE | 2022-04-02 16:37 | Progress Note ---
Spinal Anesthesia Block - Spinal Anesthesia Block Start Time: 13:50 Stop Time: 14:00 Performed by:: BRAYAN MENDIETA Procedure: Patient IDed, H&P reviewed, all questions and concerns were answered, and consent was signed. Timeout was performed at bedside. Patient in sitting position. Sterile prep and drape was performed. [3] ml of 1% lidocaine skin wheal at L[3]- L [4]. Needle introducer advanced. 25 gauge spinal needle advanced. Clear, free flowing CSF. negative blood, negative paresthesia. Spinal dose given. All needles removed. Patient tolerated procedure.
--- NOTE | 2022-04-02 16:39 | Progress Note ---
Regional Anesthesia Block - Regional Anesthesia Block Start Time: 16:20 Stop Time: 16:25 Performed By:: BRAYAN MENDIETA Procedure: Patient consented for TAP block for post surgical pain management. Patient identified, monitors placed, and time out performed. TAP identified bilaterally via ultrasound. Skin prepped bilaterally with [chlorhexidine] and [22g stimuplex] needle advanced to the TAP. [Marcaine 0.22% 35ml] injected under ultrasound guidance on the [left] side. [Marcaine 0.22% 35ml] injected under ultrasound guidance on the [right] side. Negative aspiration every 5mL, No change in heart rate or rhythm. Patient tolerated the procedure well. No apparent complications seen.
--- NOTE | 2022-04-02 16:52 | Procedure Note ---
OB Delivery Note - Delivery Date of Delivery: 04/02/22 Surgeon: TEOFILO URBANO Estimated blood loss: other (800 qbl) - Section Preop diagnosis: repeat Postop diagnosis: same section procedure: repeat low transverse Disposition: PACU Complications: none Narrative: See op report - Infant A at 1 minute: 8 at 5 minutes: 9 Infant Gender: Male (8 pounds 4 ounces.)
--- NOTE | 2022-04-02 16:53 | Operative Report ---
Operative Report Operative Report: Preoperative diagnosis: Intrauterine at 38 and 5/7 weeks 2. Previous x3 Postoperative diagnosis: Same with lysis of adhesion Procedure: Repeat low transverse section Surgeon: Dr. Ryann Sargent EBL: 800 cc Urine output: 300mL IV fluids: 2100 cc mL Findings: Viable male in the vertex presentation. Weight 8 lbs. 4 oz. 3730 g Apgars 8 and 9. Otherwise normal pelvic anatomy Specimens: None Complications: None Procedure: The patient was admitted to the OR with IV running and in place. She was properly identified as herself. She was given spinal anesthesia in the OR without difficulty. She was placed in the dorsal supine position with a leftward tilt. A Elizabeth catheter was inserted. She was then prepped and draped in the normal sterile fashion. An Allis test was used to confirm adequate anesthesia. Once confirmed, the incision was made with the scalpel and carried to the underlying fascia using the scalpel and the Bovie. The fascia was incised in the midline and incision was extended bilaterally using the curved Beard scissors. The fascia was then dissected from the underlying rectus muscles in a series of sharp and blunt dissection using the Beard scissors. The muscles were thin and there was significant diastases of the rectus muscles upon entering the cavity, however the layers were answered and the peritoneum was entered into bluntly using the surgeon's fingers. A bladder blade was then placed into the incision to protect the bladder. Following this the bladder flap was created. Hysterotomy incision was then made in the scalpel. Upon uterine entry, the amniotic sac was ruptured for copious clear fluid. The infant was then delivered without difficulty. His mouth and nose were suctioned on the field. The cord was clamped and cut and he was handed to the waiting NICU personnel. The uterus was then exteriorized and cleared of all clots and debris. The hysterotomy incision was then closed in a running locked fashion using 0 Vicryl. The abdomen was then copiously irrigated with warm normal saline. Following this the uterus was replaced into the abdominal cavity. At this point the muscles were reapproximated in the midline using individual sutures of 0 Vicryl to the best of the surgeon's ability. Following this the fascia was closed in a running fashion using 0 PDS. Tissue was then copiously irrigated. Retention sutures were placed in the subcutaneous fat tissue Skin was closed in a running fashion using 3-0 Monocryl. The sponge lap needle and instrument counts were correct 2. The patient tolerated the procedure well. She was taken to recovery in stable condition.
[2022-04-02] MEDS ORDERED: WITCH HAZEL/ GLYCERIN PAD TP PRN (19:23)
[2022-04-02] MEDS ORDERED: ONDANSETRON 4 MG/2 ML INJ IV PRN (19:23)
[2022-04-02] MEDS ORDERED: D5W/LACTATED RINGERS 1,000 ML IV SCH (19:23)
[2022-04-02] MEDS ORDERED: MAGNESIUM HYDROXIDE (MOM) ORAL LIQD UDC PO PRN (19:23)
[2022-04-02] MEDS ORDERED: PROMETHAZINE 25 MG RECT SUPP PR PRN (19:23)
[2022-04-02] MEDS ORDERED: NALOXONE 0.4 MG/1 ML INJ IV PRN (19:23)
[2022-04-02] MEDS ORDERED: LANOLIN/ZINC/DIMETHICONE (LANSINOH) 7 GM TP PRN (19:23)
[2022-04-02] MEDS: IBUPROFEN 800 MG TAB PO PRN (20:47)
[2022-04-02] MEDS: oxyCODONE /ACETAMINOPHEN 5-325MG TAB PO PRN (23:46)
[2022-04-03] MEDS: oxyCODONE /ACETAMINOPHEN 5-325MG TAB PO PRN ×4 (04:06→20:54)
[2022-04-03] MEDS: MORPHINE 4 MG/1 ML INJ IV PRN ×2 (04:40→10:17)
[2022-04-03 06:21] LABS: Hematocrit 25.7 % (30.3-42.9); Hemoglobin 8.4 gm/dl (10.1-14.3)
[2022-04-03] MEDS: SIMETHICONE 80 MG CHEW TAB PO PRN ×2 (08:30→17:01)
--- NOTE | 2022-04-03 15:01 | Progress Note ---
Assessment and Plan POD 1 s/p ltcs. Doing well. Continue to encourage ambulation. Continue routine care. Subjective - Subjective Date of service: 04/03/22 Interval history: Pt is a 27 year old who presents for elective repeat at 38.5 weeks with gestational diabetes. Pt had presentation to care in the 2nd trimester and missed some visits in between. Pt was not diagnosed with GDm until 35 weeks gestation. Her sugars are poorly controlled. Patient reports: appetite normal, voiding normally, pain poorly controlled (intermittently), ambulating normally : doing well Objective - Vital Signs Latest vital signs: Vital Signs Temp Pulse Resp BP BP Pulse Ox Pulse Ox 04/03/22 12:44 98.0 F 71 20 94/56 97 04/03/22 08:27 98.0 F 95 H 20 133/77 100 04/03/22 04:40 16 04/03/22 04:06 16 04/03/22 00:00 98.5 F 76 18 122/75 04/02/22 20:47 16 04/02/22 19:27 98 04/02/22 18:52 94 H 98 04/02/22 18:47 88 123/73 98 04/02/22 18:30 99.6 F 101 H 20 91/53 97 97 04/02/22 17:00 89 18 105/55 04/02/22 16:58 98.1 F 77 18 110/66 04/02/22 16:45 94 H 18 95/49 97 04/02/22 16:30 87 18 103/56 98 04/02/22 16:25 100 H 18 97/54 98 04/02/22 16:20 94 H 18 90/47 97 04/02/22 16:15 97.9 F 87 18 93/49 98 Intake and Output 04/02/22 04/03/22 04/03/22 22:59 06:59 14:59 Intake Total 1200 200 240 Output Total 300 2300 800 Balance 900 -2100 -560 Intake: IV 1200 Oral 200 240 Output: Urine 300 2300 800 Indwelling Catheter 1900 Void 400 800 Other: Total, Intake Amount 200 240 Total, Output Amount 400 800 - Exam Breasts: Present: deferred Cardiovascular: Present: Regular rate, Normal S1 Lungs: Present: Clear to auscultation, Normal air movement Abdomen: Present: normal appearance, soft, normal bowel sounds Uterus: Present: normal, firm Extremities: Present: normal - Labs Labs: Abnormal lab results 04/03/22 Range/Units 05:31 Hgb 8.4 L (10.1-14.3) gm/dl Hct 25.7 L (30.3-42.9) %
[2022-04-03] MEDS: IBUPROFEN 800 MG TAB PO PRN (17:00)
[2022-04-04] MEDS: FERROUS SULFATE 325 MG TAB PO SCH ×2 (00:27→10:56)
[2022-04-04] MEDS: IBUPROFEN 800 MG TAB PO PRN ×3 (00:27→15:38)
--- NOTE | 2022-04-04 10:13 | Progress Note ---
Assessment and Plan - Patient Problems (1) delivery delivered Current Visit: Yes Status: Acute Plan to address problem: Routine postoperative care Discharge home tomorrow Subjective - Subjective Date of service: 04/04/22 Interval history: Patient is currently without any significant complaints. Her infant is still in the NICU. She is tolerating regular diet and her pain is controlled. Patient reports: appetite normal, voiding normally, pain well controlled : in NICU Objective - Vital Signs Latest vital signs: Vital Signs Temp Pulse Resp BP Pulse Ox Pulse Ox 04/04/22 08:24 97.9 F 79 18 109/49 99 04/04/22 07:34 18 04/04/22 06:46 20 04/04/22 01:27 18 04/04/22 00:27 18 04/04/22 00:20 98.2 F 86 18 99/55 100 04/04/22 00:15 98.0 F 92 H 18 110/58 99 04/03/22 21:54 18 04/03/22 20:54 20 04/03/22 20:00 100 04/03/22 16:39 98.4 F 81 20 104/55 99 04/03/22 12:44 98.0 F 71 20 94/56 97 Intake and Output 04/03/22 04/04/22 04/04/22 22:59 06:59 14:59 Intake Total 240 620 Output Total 600 800 Balance -360 -180 Intake: Oral 240 200 Intake, Free Water 420 Output: Urine 600 800 Void 600 800 Other: Total, Intake Amount 240 200 Total, Output Amount 600 800 # Voids Void 1 - Exam Abdomen: Present: normal appearance Incision: Present: dressed
--- NOTE | 2022-04-04 10:14 | Discharge Summary ---
Providers - Providers Date of Admission: 04/02/22 09:36 Date of discharge: 04/05/22 Attending physician: TEOFILO URBANO Primary care physician: TEOFILO URBANO Hospitalization Reason for admission: section Delivery: Procedure: section, repeat low transverse Discharge diagnosis: IUP at term delivered Hospital course: The patient was admitted for scheduled delivery for gestational diabetes. See operative note for details of surgery. Postoperative course was uneventful. Condition at discharge: Good Disposition: 01 HOME / SELF CARE / HOMELESS - Discharge Diagnoses (1) delivery delivered Status: Acute Plan - Discharge Medications Prescriptions: Ibuprofen [Motrin] 800 mg PO Q8HR PRN #60 tablet PRN Reason: Pain , Severe (7-10) oxyCODONE /ACETAMINOPHEN [Percocet 5/325] 1 tab PO Q6HR PRN #30 tablet PRN Reason: Pain - Provider Discharge Summary Activity: no sex for 6 weeks, no heavy lifting 4 weeks, no strenuous exercise Diet: routine Instructions: routine Additional instructions: [] Smoking cessation referral if applicable(refer to patient education folder for contact #) [] Refer to [facility]'s [facility] Booklet Call your doctor immediately for: * Fever > 100.5 * Heavy vaginal bleeding ( >1 pad per hour) * Severe persistent headache * Shortness of breath * Reddened, hot, painful area to leg or breast * Drainage or odor from incision. * Keep incision clean and dry at all times and follow doctor's instructions regarding bathing/showering Schedule follow-up with Dr. Urbano in 2 weeks - Follow up plan
[2022-04-04] MEDS: oxyCODONE /ACETAMINOPHEN 5-325MG TAB PO PRN ×2 (10:56→21:30)
[2022-04-05] MEDS: FERROUS SULFATE 325 MG TAB PO SCH ×2 (00:32→09:06)
[2022-04-05] MEDS: IBUPROFEN 800 MG TAB PO PRN (00:32)
[2022-04-05] MEDS: oxyCODONE /ACETAMINOPHEN 5-325MG TAB PO PRN (08:50)
[2022-04-05 09:02] VITALS: BP 119/67
== END 2022-04-05 12:00 | disposition home or self-care (01) | DRG 766 ==
LOC: APU 09:36 → OB 18:53
PROVIDERS: ADMIT Obstetrics & Gynecology; ATTEND Obstetrics & Gynecology
PROC: 10D00Z1 Extraction of Products of Conception, Low, Open Approach (ICD-10-PCS; principal; 2022-04-02)
DX: O34.211 Maternal care for low transverse scar from previous cesarean delivery (principal); Z3A.38 38 weeks gestation of pregnancy; Z37.0 Single live birth; Z20.822 Contact with and (suspected) exposure to COVID-19; O24.429 Gestational diabetes mellitus in childbirth, unspecified control; O99.62 Diseases of the digestive system complicating childbirth; K66.0 Peritoneal adhesions (postprocedural) (postinfection)
CPT/HCPCS: 36415; 85014; 85018; 85027; 86592; 86850; 86900; 86901; G0378; J3490; J7060; J7121; J1885; J2270; J2370; J2405; J2765; J7120; U0003